=== PATIENT | male | born 1965 ===

== ENCOUNTER 2017-08-05 08:08 | Day surgery (SDC) | payer BC ==
[2017-08-04 09:57] VITALS: BMI 27.4
[2017-08-05] MEDS ORDERED: Lidocaine Hydrochloride 5 ML INJ ONE (10:44)
[2017-08-05] MEDS ORDERED: Propofol 10 mg/ml Inj (20 ML) ONE (10:44)
[2017-08-05] MEDS ORDERED: ePHEDrine 50 mg/ml Inj ONE (11:02)
[2017-08-05 11:24] VITALS: TEMP 97; O2SAT 100
[2017-08-05 11:53] VITALS: RESP 18
[2017-08-05 11:56] VITALS: BP 127/74; PULSE 71
== END 2017-08-05 11:55 | disposition home or self-care (01) ==
LOC: C.ENDO 08:08
PROVIDERS: ATTEND Internal Medicine Gastroenterology
DX: D12.5 Benign neoplasm of sigmoid colon (principal); K64.8 Other hemorrhoids
CPT/HCPCS: 45388; 82948; 88305; J2704